=== PATIENT | female | born 1975 | race Caucasian/White ===

== ENCOUNTER → 2017-11-15 | Outpatient (REF) ==
[~2017-11-15] MED LIST: ASCO-182 PO; LEVO-3 PO; LEVO-317 PO; NO ROUTINE MEDS
[2017-11-15 13:14] LABS: LDL CHOLESTEROL 143 mg/dl
== END ==
DX: Z02.9 Encounter for administrative examinations, unspecified (principal)

== ENCOUNTER → 2018-04-04 | Outpatient (CLI) | payer OTHER ==
[~2018-04-04] MED LIST changes: +LEV112 PO
== END ==
LOC: LAB 09:02
PROVIDERS: ATTEND Nurse Practitioner Primary Care
DX: E03.9 Hypothyroidism, unspecified (principal)
CPT/HCPCS: 36415; 84443

== ENCOUNTER → 2018-06-24 | Outpatient (CLI) | payer OTHER | LOC: LAB 11:24 | PROVIDERS: ATTEND Nurse Practitioner Primary Care | DX: E03.9 Hypothyroidism, unspecified (principal) | CPT/HCPCS: 36415; 84443 ==

== ENCOUNTER → 2018-06-30 | Outpatient (CLI) | payer OTHER ==
--- NOTE | 2018-06-30 15:18 | RADIOLOGY IMAGING REPORT ---
FACILITY: [facility] PATIENT NAME: MIRANDA MOON : [id number] MR: [id number] V: [id number] EXAM DATE: ORDERING PHYSICIAN: SHELL MOON TECHNOLOGIST: Soni Lance PROCEDURE:BILATERAL DIGITAL SCREENING MAMMOGRAM WITH CAD ASSISTED INTERPRETATION & 3D TOMOSYNTHESIS COMPARISON:None. INDICATIONS:SCREENING FINDINGS: Scattered fibroglandular densities are seen throughout both breasts. The parenchymal pattern has remained stable allowing for difference in mammographic technique & patient positioning. There is no evidence of malignant appearing mass, malignant appearing calcifications or other secondary sign of malignancy in either breast. DIAGNOSTIC CATEGORY 1--NEGATIVE. RECOMMENDATIONS: ROUTINE MAMMOGRAM AND CLINICAL EVALUATION. IMPRESSION: BIRADS 1: Negative. No significant abnormality is seen. Dictated by: Denisha Woods M.D. on 06/30/2018 at 11:24 Transcribed by: MILLA on 06/30/2018 at 11:30 Approved by: Denisha Woods M.D. on 06/30/2018 at 15:17 [facility]
== END ==
LOC: MAMO 01:33
PROVIDERS: ATTEND Surgery
DX: Z12.31 Encounter for screening mammogram for malignant neoplasm of breast (principal); Z80.3 Family history of malignant neoplasm of breast
CPT/HCPCS: 77063; 77067

== ENCOUNTER → 2018-10-13 | Outpatient (REF) ==
[2018-10-13 08:20] LABS: LDL CHOLESTEROL 135 mg/dl
== END ==
DX: Z02.9 Encounter for administrative examinations, unspecified (principal)

== ENCOUNTER 2018-12-23 03:32 | Day surgery (SDC) | payer OTHER ==
[~2018-12-23] VITALS: Ht 162.6 cm; Wt 59.0 kg
[2018-12-23] MEDS ORDERED: LIDOCAINE MPF 1% 5 ML VIAL ONE (08:55)
[2018-12-23] MEDS ORDERED: PROPOFOL EMUL(*) 10MG/ML 20 ML 40 ML ONE (08:55)
[2018-12-23] MEDS ORDERED: LIDOCAINE/SOD BICARB 8.4% SYR ID ONE (10:30)
[2018-12-23] MEDS ORDERED: NORMOSOL R SOLN(*) 1000 ML BAG 1,000 ML IV PRN (10:30)
[2018-12-23 10:58] VITALS: BP 138/84
[2018-12-23 11:28] VITALS: BP 84/49
--- NOTE | 2018-12-23 11:37 | Short(Outpt) Discharge Summary ---
Discharge Summary Reason for Hosp/Final Diag: (1) Encounter for screening colonoscopy Hospital Course & Plan: pt presented for screening colonoscopy. she tolerated the procedure well. she will be discharged when criteria met. Departure Discharge to: Home Discharge Instructions Home Meds Active Scripts Levothyroxine Sodium (LEVOTHYROXINE SODIUM) 0.112 Mg Tab, 1 TAB PO QDAY for 90 Days, #90 TAB 4 Refills Prov:MIREYA JACINTO DNP, [employer]OUT MACHINE OPERATOR-BC 10/26/18 Diet: Regular Activity: As Tolerated Special Instructions: we will call you in a week with biopsy results. EUNICE DIXON Dec 23, 2018 11:37
--- NOTE | 2018-12-23 11:53 | NUR ---
1127 PT ARRIVED TO [place] VIA CART, SAFETY MAINTAINED, SBAR FROM Satinder ONEAL RN AND DR. STRICKLAND, VSS, PT IN L LATERAL POSITON, UNRESPONSIVE 1130 PT REMAINS IN L LAT, BP STILL LOW, BUT STABLE, STARTING TO MUTTER, , ANNIKA, AT BEDSIDE 1137 PT MOVED TO 2L NC, SATTING WELL, REMAINS IN L LAT 1148 DR. DIXON AT BEDSIDE TO DISCUSS FINDINGS
--- NOTE | 2018-12-23 11:55 | NUR ---
1154 TURNED DOWN TO 0.5L NC, SATTING WELL
[2018-12-23 12:00] VITALS: BP 86/68
[2018-12-23 12:09] VITALS: BP 110/65
[2018-12-23 12:11] VITALS: BP 94/72
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
== END 2018-12-23 12:19 | disposition home or self-care (01) ==
LOC: OR 03:32
PROVIDERS: ATTEND Surgery
DX: Z12.11 Encounter for screening for malignant neoplasm of colon (principal); D12.5 Benign neoplasm of sigmoid colon
CPT/HCPCS: 00811; 45385; 88305; J2001; J2704